=== PATIENT | female | born 1970 | race Two or more races ===

== ENCOUNTER 2023-09-24 09:08 | Outpatient (REF) | payer OTHER, SELFPAY ==
--- NOTE | ~2023-09-24 | US_ITS ---
EXAMINATION: US PELVIS, LIMITED/FOLLOW UP CLINICAL INFORMATION: Full lumps right lower back, question lipomas. COMPARISON: None available. TECHNIQUE: The patient directed the aco coordinator to the area of palpable concern in the right lower back. Targeted ultrasound was performed. FINDINGS: There are 3 subcutaneous masses in the area of clinical concern which are solid, well-defined, avascular, measuring 2.1 cm, 1.4 cm, and 1.7 cm respectively. Echogenicity is slightly increased compared to adjacent subcutaneous fat. US/US pelvic limited IMPRESSION: The appearance is consistent with multiple lipomas. However, the imaging appearance of lipomas by ultrasound is relatively nonspecific. Consider followup MRI at a later date if the patient reports continued growth of the lesion, increased firmness, increased pain, or decreased lesion mobility.
== END 2023-09-24 09:09 | disposition home or self-care (01) ==
LOC: HO.UMASIMG 09:08
PROVIDERS: PCP Family Medicine; Visit Provider Family Medicine
DX: D17.79 Benign lipomatous neoplasm of other sites (principal); D64.9 Anemia, unspecified; I10 Essential (primary) hypertension
CPT/HCPCS: 76857